=== PATIENT | male | born 1935 | race Hispanic/Latino ===

== ENCOUNTER 2017-11-19 23:01 | Emergency (ER) | payer MEDICARE, MEDICAID ==
--- NOTE | 2017-11-19 23:32 | RAD ---
FRONTAL VIEW CHEST 11/19/17 INDICATION: Dyspnea. FINDINGS: There is prominence of the cardiac silhouette and pulmonary vasculature with interstitial prominence bilaterally. No significant effusion or discrete pneumothorax. There is vascular calcifications. IMPRESSION: Findings of mild edema. Correlate clinically. POS: [facility]
== END 2017-11-20 00:45 | disposition home or self-care (01) ==
LOC: ERS 23:01
DX: R06.02 Shortness of breath (principal); E78.5 Hyperlipidemia, unspecified; N40.0 Benign prostatic hyperplasia without lower urinary tract symptoms; I10 Essential (primary) hypertension; F17.210 Nicotine dependence, cigarettes, uncomplicated; Z79.899 Other long term (current) drug therapy
CPT/HCPCS: 71045; 93005; 94760

== ENCOUNTER 2022-11-05 13:33 | Outpatient (CLI) | payer MEDICARE, MEDICAID | END 2022-11-05 13:34 | disposition home or self-care (01) | LOC: BICRAD 13:33 | PROVIDERS: ATTEND Nurse Practitioner Family | DX: Z02.2 Encounter for examination for admission to residential institution (principal) | CPT/HCPCS: 36415; 71046; 80053; 80061; 84443; 85025 ==